=== PATIENT | female | born 1975 | race Caucasian/White ===

== ENCOUNTER 2016-06-15 19:04 | Emergency (ER) | payer OTHER ==
[~2016-06-15] VITALS: Ht 172.7 cm; Wt 56.4 kg
[2016-06-15 19:06] VITALS: TEMP 97.9
[2016-06-15] MEDS ORDERED: NORCO 325 MG-51 TAB PO (21:35)
[2016-06-15] MEDS ORDERED: PREDNISONE20 MG PO (21:35)
[2016-06-15] MEDS ORDERED: VALIUM 5MG T5 MG/TAB PO (21:35)
[2016-06-15 21:50] VITALS: BP 102/63; PULSE 66
[2016-06-23] MEDS ORDERED: VANCOMYCIN 11 G/VIA1 IV (07:11)
[2016-06-23] MEDS ORDERED: MAXIPIME2 GM IV (07:12)
[2016-07-07] MEDS ORDERED: MYRBETR25MG PO (11:26)
[2016-08-02] MEDS ORDERED: DIFLUCAN150 MG PO (18:45)
[2016-08-05] MEDS ORDERED: CELEXA 20MG20 MG/TAB PO (08:15)
== END 2016-06-15 22:00 | disposition home or self-care (01) ==
LOC: COL.ER 19:04
DX: M54.32 Sciatica, left side (principal)
CPT/HCPCS: J1885; J3360

== ENCOUNTER → 2016-06-30 | Outpatient (CLI) | payer OTHER ==
[~2016-06-30] MED LIST: CELEXA 20MG20 MG/TAB PO; DIFLUCAN150 MG PO; MAXIPIME2 GM IV; MYRBETR25MG PO; NORCO 325 MG-51 TAB PO; OSCAL 500 TAB500 MG PO; PREDNISONE20 MG PO; TYLENOL PM EXTR1 TA1 PO; VALIUM 5MG T5 MG/TAB PO; VANCOMYCIN 11 G/VIA1 IV
== END ==
LOC: COL.RAD 06:27
DX: Q62.39 Other obstructive defects of renal pelvis and ureter (principal); D25.9 Leiomyoma of uterus, unspecified; G95.89 Other specified diseases of spinal cord
CPT/HCPCS: A9503; A9562; Q9967

== ENCOUNTER → 2016-08-10 | Outpatient (CLI) | payer OTHER | LOC: COL.RAD 08-03 14:45 | DX: M46.20 Osteomyelitis of vertebra, site unspecified (principal); M48.06 Spinal stenosis, lumbar region; R93.8 Abnormal findings on diagnostic imaging of other specified body structures | CPT/HCPCS: A9585 ==

== ENCOUNTER 2016-08-12 07:00 | Outpatient (RCR) | payer OTHER ==
[2016-06-22] VITALS (16 sets, daily range): BP systolic 107–1110; BP diastolic 63–82; PULSE 67–80
[2016-06-22 10:11] LABS: BASO # 0.1 (0.0-0.2); BASO % 0.6 % (0.0-2.0); EOS # 0.1 (0.0-0.7); GRAN % 70.8 % (42.2-75.2); HEMATOCRIT 39.5 % (37.0-47.0); HEMOGLOBIN 12.9 g/dl (12.5-16.0); LYMPH # 2.2 (1.2-3.4); LYMPH % 22.7 % (20.0-51.0); MEAN CELL VOLUME 87 fl (80.0-100.0); MEAN CORPUSCULAR HEMOGLOBIN 29 pg (27.0-31.0); MEAN CORPUSCULAR HGB CONC 33 g/dl (33.0-37.0); MEAN PLATELET VOLUME 9.2 fl (7.4-10.4); MONO # 0.5 (0.1-0.6); MONO % 4.6 % (1.7-9.3); PLATELET COUNT 329 K/mm3 (130-400); RED BLOOD COUNT 4.53 M/mm3 (4.10-5.30); REDCELL DISTRIBUTION WIDTH-CV 14.2 % (11.5-14.5); WHITE BLOOD COUNT 9.8 K/mm3 (4.8-10.8)
[2016-06-22 10:31] LABS: ERYTHROCYTE SEDIMENTATION RATE 12 mm/hr (0-20)
[2016-06-22 14:00] LABS: CALCIUM 9.2 mg/dL (8.4-10.2); CREATININE, serum 0.91 mg/dL (0.52-1.25); POTASSIUM 4.4 mmol/L (3.4-5.0)
[2016-06-22 14:17] LABS: PH 7 (5-8); SQUAMOUS EPITHELIAL 0-2 /hpf; URINE APPEARANCE Clear; URINE BACTERIA Rare /hpf; URINE BILIRUBIN Negative (NEGATIVE); URINE BLOOD Negative (NEGATIVE); URINE COLOR Straw; URINE GLUCOSE Negative (NEGATIVE); URINE KETONE Negative (NEGATIVE); URINE RBC None Seen /hpf; URINE UROBILINOGEN Negative (NEGATIVE); URINE WBC 0-2 /hpf
[2016-06-23 07:16] VITALS: BP 97/61; PULSE 89; TEMP 97.7
[2016-06-24 07:33] VITALS: BP 99/54; PULSE 77
[2016-06-24 18:05] LABS: CALCIUM 9.3 mg/dL (8.4-10.2); CREATININE, serum 1.13 mg/dL (0.52-1.25); POTASSIUM 4.6 mmol/L (3.4-5.0)
[2016-06-25 07:52] VITALS: BP 111/59; PULSE 83; TEMP 97.6
[2016-06-26 07:44] VITALS: BP 89/47; PULSE 72
[2016-06-27 12:00] VITALS: BP 92/47; PULSE 71; TEMP 97.3
[2016-06-27 18:31] VITALS: BP 114/61; PULSE 90; TEMP 98.2
[2016-06-28 08:01] VITALS: BP 110/61; PULSE 73; TEMP 97.9
[2016-06-28 18:52] VITALS: BP 107/61; PULSE 76; TEMP 97.8
[2016-06-29 07:29] VITALS: BP 94/61; PULSE 66
[2016-06-29 18:34] VITALS: BP 98/61; PULSE 84; TEMP 98.1
[2016-06-30 07:30] VITALS: BP 101/55; PULSE 70; TEMP 97.9
[2016-06-30 19:01] VITALS: BP 98/50; PULSE 70; TEMP 98
[2016-07-01 07:22] VITALS: BP 94/56; PULSE 67; TEMP 97.6
[2016-07-02 07:28] VITALS: BP 98/56; PULSE 70; TEMP 97.9
[2016-07-03 07:28] VITALS: BP 92/60; PULSE 88; TEMP 97.7
[2016-07-04 08:17] VITALS: BP 102/57; PULSE 76; TEMP 97.8
[2016-07-04 18:03] VITALS: BP 105/62; PULSE 78; TEMP 97.8
[2016-07-05 07:57] VITALS: BP 106/63; PULSE 81; TEMP 97.6
[2016-07-05 19:03] VITALS: BP 106/60; PULSE 80; TEMP 98.1
[2016-07-06 07:15] VITALS: BP 99/49; PULSE 89; TEMP 97.4
[2016-07-06 18:05] VITALS: BP 104/60; PULSE 89; TEMP 98
[2016-07-07 07:24] VITALS: BP 109/66; PULSE 84; TEMP 98.1
[2016-07-07 19:14] VITALS: BP 108/55; PULSE 89; TEMP 97.8
[2016-07-08 08:13] VITALS: BP 99/61; PULSE 99; TEMP 97.8
[2016-07-08 18:04] LABS: BASO # 0.1 (0.0-0.2); BASO % 0.7 % (0.0-2.0); EOS # 0.1 (0.0-0.7); EOS % 1.1 % (0-4.0); GRAN # 5.5 (1.4-6.5); GRAN % 66.9 % (42.2-75.2); HEMATOCRIT 35.4 % (37.0-47.0); HEMOGLOBIN 11.6 g/dl (12.5-16.0); LYMPH # 2.2 (1.2-3.4); LYMPH % 26.2 % (20.0-51.0); MEAN CELL VOLUME 86 fl (80.0-100.0); MEAN CORPUSCULAR HEMOGLOBIN 28 pg (27.0-31.0); MEAN CORPUSCULAR HGB CONC 33 g/dl (33.0-37.0); MEAN PLATELET VOLUME 9.2 fl (7.4-10.4); MONO # 0.4 (0.1-0.6); MONO % 4.9 % (1.7-9.3); PLATELET COUNT 273 K/mm3 (130-400); REDCELL DISTRIBUTION WIDTH-CV 14.7 % (11.5-14.5); WHITE BLOOD COUNT 8.2 K/mm3 (4.8-10.8)
[2016-07-08 18:19] LABS: ADJUSTED CALCIUM 9.2 mg/dL (8.4-10.2); ALBUMIN 4.1 gm/dL (3.5-5.0); BILIRUBIN,TOTAL 0.8 mg/dL (0.0-1.0); C-REACTIVE PROTEIN 0.6 mg/dL (0.0-0.9); CALCIUM 9.3 mg/dL (8.4-10.2); CREATININE, serum 0.71 mg/dL (0.52-1.25); POTASSIUM 4.3 mmol/L (3.4-5.0); TOTAL PROTEIN 7.6 gm/dL (6.4-8.2)
[2016-07-08 18:39] LABS: ERYTHROCYTE SEDIMENTATION RATE 15 mm/hr (0-20)
[2016-07-09 07:21] VITALS: BP 97/62; PULSE 82; TEMP 97.3
[2016-07-10 07:10] VITALS: BP 100/54; PULSE 75; TEMP 97.6
[2016-07-11 07:00] VITALS: BP 95/34; PULSE 70; TEMP 97.9
[2016-07-12 07:42] VITALS: BP 104/57; PULSE 85; TEMP 97.6
[2016-07-12 18:24] VITALS: BP 107/46; PULSE 78; TEMP 98.2
[2016-07-13 07:35] VITALS: BP 97/61; PULSE 77; TEMP 97.4
[2016-07-13 18:21] VITALS: BP 98/60; PULSE 77; TEMP 98
[2016-07-14 07:45] VITALS: BP 94/56; PULSE 80; TEMP 97.6
[2016-07-14 18:06] VITALS: BP 131/113; PULSE 85; TEMP 98.1
[2016-07-15 07:45] LABS: BASO # 0.1 (0.0-0.2); BASO % 0.9 % (0.0-2.0); EOS # 0.3 (0.0-0.7); EOS % 3.6 % (0-4.0); GRAN # 5.8 (1.4-6.5); GRAN % 65.8 % (42.2-75.2); LYMPH % 23.1 % (20.0-51.0); MEAN CELL VOLUME 88 fl (80.0-100.0); MEAN CORPUSCULAR HGB CONC 32 g/dl (33.0-37.0); MEAN PLATELET VOLUME 9.2 fl (7.4-10.4); MONO # 0.5 (0.1-0.6); PLATELET COUNT 241 K/mm3 (130-400); RED BLOOD COUNT 4.11 M/mm3 (4.10-5.30); REDCELL DISTRIBUTION WIDTH-CV 15.9 % (11.5-14.5); WHITE BLOOD COUNT 8.9 K/mm3 (4.8-10.8)
[2016-07-15 08:02] LABS: ADJUSTED CALCIUM 9.2 mg/dL (8.4-10.2); ALANINE AMINOTRANSFERASE 24 U/L (9-52); ALBUMIN 3.4 gm/dL (3.5-5.0); ALKALINE PHOSPHATASE 73 U/L (50-136); ANION GAP 9 mmol/L (7-16); BILIRUBIN,TOTAL 0.5 mg/dL (0.0-1.0); BLOOD UREA NITROGEN 17 mg/dL (7-17); CALCIUM 8.7 mg/dL (8.4-10.2); CARBON DIOXIDE 24 mmol/L (22-30); CHLORIDE 103 mmol/L (98-107); CREATININE, serum 0.78 mg/dL (0.52-1.25); GLUCOSE 88 mg/dL (74-106); POTASSIUM 4.3 mmol/L (3.4-5.0); SODIUM 136 mmol/L (137-145); TOTAL PROTEIN 6.2 gm/dL (6.4-8.2)
[2016-07-15 08:03] LABS: C-REACTIVE PROTEIN < 0.5 mg/dL (0.0-0.9)
[2016-07-15 08:17] LABS: HEMATOCRIT 36.3 % (37.0-47.0); HEMOGLOBIN 11.6 g/dl (12.5-16.0); MEAN CORPUSCULAR HEMOGLOBIN 28 pg (27.0-31.0)
[2016-07-15 08:51] LABS: ERYTHROCYTE SEDIMENTATION RATE 4 mm/hr (0-20)
[2016-07-15 09:23] VITALS: BP 95/48; PULSE 86; TEMP 97.9
[2016-07-15 18:00] VITALS: BP 98/54; PULSE 86; TEMP 98.1
[2016-07-16 07:00] VITALS: BP 94/58; PULSE 94; TEMP 97.4
[2016-07-17 08:27] VITALS: BP 104/52; PULSE 75; TEMP 98.2
[2016-07-18 08:06] VITALS: BP 100/36; PULSE 69; TEMP 97.6
[2016-07-19 07:25] VITALS: BP 93/58; PULSE 76; TEMP 97.7
[2016-07-19 19:30] VITALS: BP 93/55; PULSE 76; TEMP 97.8
[2016-07-20 08:09] VITALS: BP 101/60; PULSE 64; TEMP 97.4
[2016-07-21 07:19] VITALS: BP 96/67; PULSE 62; TEMP 97.7
[2016-07-21 18:17] LABS: BASO # 0.1 (0.0-0.2); BASO % 1.1 % (0.0-2.0); EOS # 0.2 (0.0-0.7); EOS % 3.9 % (0-4.0); GRAN # 3.2 (1.4-6.5); GRAN % 56.5 % (42.2-75.2); LYMPH # 1.7 (1.2-3.4); LYMPH % 30.6 % (20.0-51.0); MEAN CELL VOLUME 90 fl (80.0-100.0); MEAN CORPUSCULAR HGB CONC 32 g/dl (33.0-37.0); MEAN PLATELET VOLUME 9.9 fl (7.4-10.4); MONO # 0.4 (0.1-0.6); MONO % 7.5 % (1.7-9.3); PLATELET COUNT 133 K/mm3 (130-400); RED BLOOD COUNT 3.01 M/mm3 (4.10-5.30); REDCELL DISTRIBUTION WIDTH-CV 15.7 % (11.5-14.5); WHITE BLOOD COUNT 5.6 K/mm3 (4.8-10.8)
[2016-07-21 18:19] LABS: HEMOGLOBIN 8.6 g/dl (12.5-16.0); MEAN CORPUSCULAR HEMOGLOBIN 29 pg (27.0-31.0)
[2016-07-21 18:32] LABS: ALANINE AMINOTRANSFERASE 26 U/L (9-52); ALBUMIN 3.5 gm/dL (3.5-5.0); ALKALINE PHOSPHATASE 68 U/L (50-136); ANION GAP 9 mmol/L (7-16); BILIRUBIN,TOTAL 0.5 mg/dL (0.0-1.0); BLOOD UREA NITROGEN 23 mg/dL (7-17); CALCIUM 8.6 mg/dL (8.4-10.2); CARBON DIOXIDE 24 mmol/L (22-30); CHLORIDE 103 mmol/L (98-107); CREATININE, serum 0.85 mg/dL (0.52-1.25); GLUCOSE 110 mg/dL (74-106); POTASSIUM 4.2 mmol/L (3.4-5.0); SODIUM 136 mmol/L (137-145); TOTAL PROTEIN 6.4 gm/dL (6.4-8.2)
[2016-07-21 18:36] LABS: C-REACTIVE PROTEIN < 0.5 mg/dL (0.0-0.9)
[2016-07-21 18:41] LABS: VANCOMYCIN TROUGH 20.01 ug/mL (7.00-20.00)
[2016-07-22 07:13] VITALS: BP 104/62; PULSE 64; TEMP 97.5
[2016-07-22 18:42] VITALS: BP 100/70; PULSE 70; TEMP 98
[2016-07-23 07:06] VITALS: BP 99/60; PULSE 68; TEMP 97.6
[2016-07-24 07:07] VITALS: BP 97/67; PULSE 72
[2016-07-25 07:18] LABS: MEAN CELL VOLUME 89 fl (80.0-100.0); MEAN CORPUSCULAR HGB CONC 32 g/dl (33.0-37.0); MEAN PLATELET VOLUME 9.5 fl (7.4-10.4); PLATELET COUNT 198 K/mm3 (130-400); WHITE BLOOD COUNT 5.1 K/mm3 (4.8-10.8)
[2016-07-25 07:19] LABS: ADD PATHOLOGY DIFF REVIEW NO; HEMATOCRIT 36.5 % (37.0-47.0); HEMOGLOBIN 11.8 g/dl (12.5-16.0); MEAN CORPUSCULAR HEMOGLOBIN 29 pg (27.0-31.0)
[2016-07-25 07:59] LABS: ERYTHROCYTE SEDIMENTATION RATE 4 mm/hr (0-20)
[2016-07-25 08:00] VITALS: BP 104/57; PULSE 72; TEMP 97.5
[2016-07-25 08:05] LABS: ALANINE AMINOTRANSFERASE 29 U/L (9-52); ALBUMIN 3.9 gm/dL (3.5-5.0); ALKALINE PHOSPHATASE 68 U/L (50-136); ANION GAP 10 mmol/L (7-16); BILIRUBIN,TOTAL 0.6 mg/dL (0.0-1.0); BLOOD UREA NITROGEN 20 mg/dL (7-17); CALCIUM 8.9 mg/dL (8.4-10.2); CARBON DIOXIDE 25 mmol/L (22-30); CHLORIDE 102 mmol/L (98-107); CREATININE, serum 0.75 mg/dL (0.52-1.25); GLUCOSE 95 mg/dL (74-106); POTASSIUM 4.4 mmol/L (3.4-5.0); SODIUM 138 mmol/L (137-145)
[2016-07-25 08:11] LABS: C-REACTIVE PROTEIN < 0.5 mg/dL (0.0-0.9)
[2016-07-25 08:56] LABS: BAND 12 % (0-10); BASOPHIL 2 % (0-2); EOSINOPHIL 3 % (0-4); NEUTROPHILS 35 % (42.0-75.2); PLATELET ESTIMATE NORMAL (NORMAL); TOTAL CELLS COUNTED 100
[2016-07-25 08:58] LABS: HYPOCHROMIA 1+
[2016-07-25 17:00] VITALS: BP 102/53; PULSE 76; TEMP 98.1
[2016-07-26 06:49] VITALS: BP 95/58; PULSE 67; TEMP 97.4
[2016-07-26 17:46] VITALS: BP 107/66; PULSE 66; TEMP 98.1
[2016-07-27 07:49] VITALS: BP 102/56; PULSE 67; TEMP 97.9
[2016-07-28 06:50] VITALS: BP 99/55; PULSE 76; TEMP 97.4
[2016-07-28 18:34] VITALS: BP 115/67; PULSE 77; TEMP 98
[2016-07-29 07:14] VITALS: BP 103/63; PULSE 64; TEMP 97.3
[2016-07-30 07:08] VITALS: BP 97/53; PULSE 76; TEMP 97.8
[2016-07-31 07:00] VITALS: BP 97/59; PULSE 62; TEMP 97.5
[2016-08-01 07:46] LABS: BASO # 0.1 (0.0-0.2); EOS # 0.2 (0.0-0.7); EOS % 5.1 % (0-4.0); GRAN % 49.1 % (42.2-75.2); LYMPH # 1.5 (1.2-3.4); LYMPH % 35.6 % (20.0-51.0); MEAN CELL VOLUME 89 fl (80.0-100.0); MEAN CORPUSCULAR HGB CONC 32 g/dl (33.0-37.0); MEAN PLATELET VOLUME 9.3 fl (7.4-10.4); MONO # 0.3 (0.1-0.6); PLATELET COUNT 212 K/mm3 (130-400); RED BLOOD COUNT 4.14 M/mm3 (4.10-5.30); REDCELL DISTRIBUTION WIDTH-CV 15.9 % (11.5-14.5); WHITE BLOOD COUNT 4.1 K/mm3 (4.8-10.8)
[2016-08-01 07:50] LABS: HEMATOCRIT 36.7 % (37.0-47.0); HEMOGLOBIN 11.9 g/dl (12.5-16.0); MEAN CORPUSCULAR HEMOGLOBIN 29 pg (27.0-31.0)
[2016-08-01 07:51] VITALS: BP 90/54; PULSE 75; TEMP 97.9
[2016-08-01 08:07] LABS: ADJUSTED CALCIUM 9.1 mg/dL (8.4-10.2); ALANINE AMINOTRANSFERASE 23 U/L (9-52); ALBUMIN 4.1 gm/dL (3.5-5.0); ALKALINE PHOSPHATASE 73 U/L (50-136); ANION GAP 13 mmol/L (7-16); BILIRUBIN,TOTAL 0.7 mg/dL (0.0-1.0); BLOOD UREA NITROGEN 19 mg/dL (7-17); CALCIUM 9.2 mg/dL (8.4-10.2); CARBON DIOXIDE 24 mmol/L (22-30); CHLORIDE 101 mmol/L (98-107); CREATININE, serum 0.85 mg/dL (0.52-1.25); GLUCOSE 92 mg/dL (74-106); POTASSIUM 4.4 mmol/L (3.4-5.0); SODIUM 138 mmol/L (137-145); TOTAL PROTEIN 7.3 gm/dL (6.4-8.2)
[2016-08-01 08:11] LABS: ERYTHROCYTE SEDIMENTATION RATE 4 mm/hr (0-20)
[2016-08-01 08:30] LABS: C-REACTIVE PROTEIN < 0.5 mg/dL (0.0-0.9)
[2016-08-01 18:40] VITALS: BP 97/58; PULSE 70; TEMP 97.9
[2016-08-02 07:02] VITALS: BP 105/70; PULSE 64; TEMP 97.6
[2016-08-02 19:40] VITALS: BP 107/64; PULSE 75; TEMP 98
[2016-08-03 07:52] VITALS: BP 103/63; PULSE 75; TEMP 97.7
[2016-08-04 08:11] VITALS: BP 115/66; PULSE 71; TEMP 97.5
[2016-08-05 06:54] VITALS: BP 108/65; PULSE 76; TEMP 97.7
[2016-08-05 18:35] VITALS: BP 109/67; PULSE 76; TEMP 98
[2016-08-06 07:13] VITALS: BP 105/62; PULSE 66; TEMP 97.7
[2016-08-08 07:17] VITALS: BP 98/69; PULSE 86; TEMP 97.5
[2016-08-08 07:24] LABS: BASO # 0.1 (0.0-0.2); BASO % 1.5 % (0.0-2.0); EOS # 0.2 (0.0-0.7); EOS % 2.9 % (0-4.0); GRAN # 3.8 (1.4-6.5); GRAN % 58.5 % (42.2-75.2); HEMATOCRIT 37.5 % (37.0-47.0); HEMOGLOBIN 12.3 g/dl (12.5-16.0); LYMPH # 1.8 (1.2-3.4); LYMPH % 27.6 % (20.0-51.0); MEAN CELL VOLUME 88 fl (80.0-100.0); MEAN CORPUSCULAR HEMOGLOBIN 29 pg (27.0-31.0); MEAN CORPUSCULAR HGB CONC 33 g/dl (33.0-37.0); MEAN PLATELET VOLUME 9.4 fl (7.4-10.4); MONO # 0.6 (0.1-0.6); MONO % 9.2 % (1.7-9.3); PLATELET COUNT 206 K/mm3 (130-400); RED BLOOD COUNT 4.27 M/mm3 (4.10-5.30); REDCELL DISTRIBUTION WIDTH-CV 15.8 % (11.5-14.5); WHITE BLOOD COUNT 6.5 K/mm3 (4.8-10.8)
[2016-08-08 07:42] LABS: ADJUSTED CALCIUM 9.2 mg/dL (8.4-10.2); ALANINE AMINOTRANSFERASE 20 U/L (9-52); ALBUMIN 4.1 gm/dL (3.5-5.0); ALKALINE PHOSPHATASE 67 U/L (50-136); ANION GAP 12 mmol/L (7-16); BILIRUBIN,TOTAL 0.5 mg/dL (0.0-1.0); BLOOD UREA NITROGEN 13 mg/dL (7-17); CALCIUM 9.3 mg/dL (8.4-10.2); CARBON DIOXIDE 23 mmol/L (22-30); CHLORIDE 101 mmol/L (98-107); CREATININE, serum 0.86 mg/dL (0.52-1.25); GLUCOSE 100 mg/dL (74-106); POTASSIUM 4.1 mmol/L (3.4-5.0); SODIUM 137 mmol/L (137-145); TOTAL PROTEIN 6.9 gm/dL (6.4-8.2)
[2016-08-08 07:45] LABS: VANCOMYCIN TROUGH 19.49 ug/mL (7.00-20.00)
[2016-08-08 07:46] LABS: C-REACTIVE PROTEIN < 0.5 mg/dL (0.0-0.9); ERYTHROCYTE SEDIMENTATION RATE 1 mm/hr (0-20)
[2016-08-09 07:20] VITALS: BP 113/75; PULSE 85; TEMP 97.8
[2016-08-09 18:32] VITALS: BP 106/62; PULSE 72; TEMP 98
[2016-08-10 06:48] VITALS: BP 110/67; PULSE 71; TEMP 98
[2016-08-11 07:20] VITALS: BP 111/65; PULSE 72; TEMP 97.9
[2016-08-11 18:39] VITALS: BP 142/76; PULSE 77; TEMP 98.3
[~2016-08-12] VITALS: Ht 172.7 cm; Wt 52.2 kg
[~2016-08-12 07:00] MED LIST changes: -OSCAL 500 TAB500 MG PO; -TYLENOL PM EXTR1 TA1 PO
[2016-08-12 07:37] VITALS: BP 105/68; PULSE 74; TEMP 98
== END 2016-08-12 14:09 | disposition home or self-care (01) ==
LOC: EUO 07:00
PROVIDERS: Internal Medicine; Internal Medicine Infectious Disease
DX: M46.46 Discitis, unspecified, lumbar region (principal); M46.26 Osteomyelitis of vertebra, lumbar region; N13.5 Crossing vessel and stricture of ureter without hydronephrosis; M87.88 Other osteonecrosis, other site; R63.4 Abnormal weight loss; L65.9 Nonscarring hair loss, unspecified; Z95.828 Presence of other vascular implants and grafts; Z87.891 Personal history of nicotine dependence; Z79.899 Other long term (current) drug therapy
CPT/HCPCS: A9585; C1751; J0692; J1644; J2250; J3010; J3370; J7050

== ENCOUNTER 2016-08-31 13:22 | Inpatient (IN) | payer OTHER ==
[~2016-08-31] VITALS: Ht 172.7 cm; Wt 55.4 kg
[2016-09-13] VITALS (12 sets, daily range): BP systolic 95–112; BP diastolic 48–68; PULSE 67–84; TEMP 97.6–98.2
[2016-09-13] MEDS ORDERED: OSCAL 500 TAB500 MG PO (06:35)
[2016-09-13] MEDS ORDERED: TYLENOL PM EXTR1 TA1 PO (06:35)
[2016-09-14 02:35] VITALS: BP 101/61; PULSE 64; TEMP 97.5
[2016-09-14 06:01] VITALS: BP 106/63; PULSE 60; TEMP 97.7
[2016-09-14 06:54] LABS: BASO % 0.3 % (0.0-2.0); EOS % 0.2 % (0-4.0); GRAN # 9.5 (1.4-6.5); GRAN % 77.3 % (42.2-75.2); LYMPH # 2.1 (1.2-3.4); LYMPH % 16.8 % (20.0-51.0); MEAN CELL VOLUME 91 fl (80.0-100.0); MEAN CORPUSCULAR HGB CONC 33 g/dl (33.0-37.0); MEAN PLATELET VOLUME 9.4 fl (7.4-10.4); MONO # 0.6 (0.1-0.6); PLATELET COUNT 185 K/mm3 (130-400); REDCELL DISTRIBUTION WIDTH-CV 15.6 % (11.5-14.5); WHITE BLOOD COUNT 12.3 K/mm3 (4.8-10.8)
[2016-09-14 06:56] LABS: HEMATOCRIT 32.7 % (37.0-47.0); HEMOGLOBIN 10.7 g/dl (12.5-16.0); MEAN CORPUSCULAR HEMOGLOBIN 30 pg (27.0-31.0)
[2016-09-14 07:10] LABS: CALCIUM 7.9 mg/dL (8.4-10.2); CREATININE, serum 0.85 mg/dL (0.52-1.25); POTASSIUM 4.1 mmol/L (3.4-5.0)
[2016-09-14 09:16] VITALS: BP 99/66; PULSE 64; TEMP 98.1
[2016-09-14 13:28] VITALS: BP 112/58; PULSE 75; TEMP 97.8
[2016-09-14 18:25] VITALS: BP 110/60; PULSE 71
[2016-09-14 21:55] VITALS: BP 105/68; PULSE 68; TEMP 98.2
[2016-09-15 05:30] VITALS: BP 113/66; PULSE 89; TEMP 98.2
[2016-09-15 09:13] VITALS: BP 109/56; PULSE 79; TEMP 97.8
[2016-09-15 13:35] VITALS: BP 111/55; PULSE 72; TEMP 97.8
== END 2016-09-15 14:48 | disposition home or self-care (01) | DRG 660 ==
LOC: INPTSU 09-13 05:42 → SURG 09-13 05:42
PROVIDERS: Urology
PROC: 8E0W4CZ Robotic Assisted Procedure of Trunk Region, Percutaneous Endoscopic Approach (ICD-10-PCS; 2016-09-13)
PROC: 0TT04ZZ Resection of Right Kidney, Percutaneous Endoscopic Approach (ICD-10-PCS; principal; 2016-09-13 07:30)
DX: N13.6 Pyonephrosis (principal); E44.0 Moderate protein-calorie malnutrition; Z68.1 Body mass index [BMI] 19.9 or less, adult; N26.1 Atrophy of kidney (terminal); M46.46 Discitis, unspecified, lumbar region; Z87.891 Personal history of nicotine dependence
CPT/HCPCS: A4315; J0690; J0692; J1100; J1170; J1885; J2175; J2270; J2405; J2704; J2710; J7120

== ENCOUNTER → 2016-09-06 | Outpatient (CLI) | payer OTHER ==
[~2016-09-06] MED LIST changes: +OSCAL 500 TAB500 MG PO; +TYLENOL PM EXTR1 TA1 PO
[2016-09-06 13:26] LABS: BASO # 0.1 (0.0-0.2); BASO % 0.8 % (0.0-2.0); EOS % 0.6 % (0-4.0); GRAN # 4.9 (1.4-6.5); GRAN % 69.7 % (42.2-75.2); HEMATOCRIT 37.3 % (37.0-47.0); HEMOGLOBIN 12.4 g/dl (12.5-16.0); LYMPH # 1.7 (1.2-3.4); LYMPH % 23.6 % (20.0-51.0); MEAN CELL VOLUME 88 fl (80.0-100.0); MEAN CORPUSCULAR HEMOGLOBIN 29 pg (27.0-31.0); MEAN CORPUSCULAR HGB CONC 33 g/dl (33.0-37.0); MEAN PLATELET VOLUME 9.6 fl (7.4-10.4); MONO # 0.4 (0.1-0.6); PLATELET COUNT 229 K/mm3 (130-400); RED BLOOD COUNT 4.23 M/mm3 (4.10-5.30); REDCELL DISTRIBUTION WIDTH-CV 15.6 % (11.5-14.5); WHITE BLOOD COUNT 7.1 K/mm3 (4.8-10.8)
[2016-09-06 13:50] LABS: ERYTHROCYTE SEDIMENTATION RATE 1 mm/hr (0-20)
[2016-09-06 13:52] LABS: ADJUSTED CALCIUM 8.9 mg/dL (8.4-10.2); ALANINE AMINOTRANSFERASE 21 U/L (9-52); ALBUMIN 4.4 gm/dL (3.5-5.0); ALKALINE PHOSPHATASE 63 U/L (50-136); ANION GAP 9 mmol/L (7-16); BILIRUBIN,TOTAL 0.5 mg/dL (0.0-1.0); BLOOD UREA NITROGEN 24 mg/dL (7-17); CALCIUM 9.2 mg/dL (8.4-10.2); CARBON DIOXIDE 25 mmol/L (22-30); CHLORIDE 101 mmol/L (98-107); CREATININE, serum 0.98 mg/dL (0.52-1.25); GLUCOSE 93 mg/dL (74-106); POTASSIUM 4.4 mmol/L (3.4-5.0); SODIUM 134 mmol/L (137-145); TOTAL PROTEIN 7.5 gm/dL (6.4-8.2)
[2016-09-06 13:54] LABS: C-REACTIVE PROTEIN < 0.5 mg/dL (0.0-0.9)
== END ==
LOC: COL.LAB 12:52
PROVIDERS: Internal Medicine Infectious Disease
DX: M46.20 Osteomyelitis of vertebra, site unspecified (principal)